=== PATIENT | male | born 1985 | race Caucasian/White ===

== ENCOUNTER 2019-04-17 19:47 | Emergency (ER) | payer OTHER ==
--- NOTE | 2019-04-17 19:52 | PDOC ---
Rapid Medical Evaluation Time Seen by Provider: 04/17/19 19:50 Medical Evaluation: Allergies Allergy/AdvReac Type Severity Reaction Status Date / Time No Known Allergies Allergy Verified 04/17/19 19:50 04/17/19 19:50 I have performed a brief in-person evaluation of this patient. The patient presents with a chief complaint of: RLQ pain x 3 days, no change in BM, n/v/f/c, dysuria, penile dc, testes pain or swelling. Sent from for ED eval. H/o remote surgery for umbilical hernia Pertinent physical exam findings:stable and well pp w/ ttp to RLQ I have ordered the following:labs The patient will proceed to the ED for further evaluation. 04/17/19 19:53 Discharge Disposition - Diagnosis RLQ abdominal pain - Referrals - Patient Instructions - Post Discharge Activity
[2019-04-17 20:05] VITALS: TEMP 98.7; BMI 26.6
[2019-04-17 20:42] LABS: BASO % 0.6 % (0-2.0); EOS % 2.8 % (0-4.5); HEMATOCRIT 45.2 % (35.4-49); HEMOGLOBIN 14.7 GM/dL (11.7-16.9); LYMPH % 31.8 % (8-40); MCH 27.9 pg (25.7-33.7); MCHC 32.6 g/dl (32.0-35.9); MEAN CELL VOLUME 85.7 fl (80-96); MEAN PLT VOLUME 8.1 fl (7.5-11.1); MONO % 9.3 % (3.8-10.2); NEUT % 55.5 % (42.8-82.8); PLATELET COUNT 238 K/MM3 (134-434); RBC 5.27 M/mm3 (4.00-5.60); RDW 13.2 % (11.9-15.9); WHITE BLOOD COUNT 5.3 K/mm3 (4.0-10.0)
[2019-04-17 20:47] LABS: URINE APPEARANCE CLEAR; URINE BILIRUBIN NEGATIVE (NEGATIVE); URINE COLOR YELLOW; URINE GLUCOSE (UA) NEGATIVE (NEGATIVE); URINE KETONE NEGATIVE (NEGATIVE); URINE LEUK ESTERASE NEGATIVE (NEGATIVE); URINE NITRITE NEGATIVE (NEGATIVE); URINE PROTEIN NEGATIVE (NEGATIVE)
[2019-04-17 20:54] LABS: INR 1.02 (0.83-1.09)
[2019-04-17] MEDS ORDERED: ACETAMINOPHEN 1000 MG/100 ML VIAL (NON FORMULARY) IVPB ONE (20:57)
[2019-04-17] MEDS ORDERED: SODIUM CHLORIDE 1,000 ML IV STA (20:57)
--- NOTE | 2019-04-17 21:10 | PDOC ---
History of Present Illness - General Chief Complaint: Pain Stated Complaint: ABD PAIN Time Seen by Provider: 04/17/19 19:50 History Source: Patient Exam Limitations: No Limitations - History of Present Illness Initial Comments: Pt is a 33 yo M, with PMH of ADHD (on adderall), who presents with migrating pain in his abdomen x3 days. Pt states the pain started around his umbilicus, and is sharp, now radiating towards his RLQ. The pain is now associated with nausea, anorexia, and loose stools over the past 2 days. Pt has been tolerating PO food and fluid intake, but has not felt like eating. Pt denies any fevers/ chills, headache, vision changes, syncope, chest pain, palpitations, SOB, vomiting, urinary symptoms, constipation, or leg swelling. Allergies: NKDA PCP: Dr. Lewis ([place]) Social: Pt denies any cigarette, alcohol, or drug use. Pt denies any recent travel or sick contacts. Surgical: small umbilical hernia repair (lap) Family: nephrolithiasis, no appendicitis known 04/17/19 20:57 04/17/19 21:23 Past History - Travel Traveled outside of the country in the last 30 days: No Close contact w/someone who was outside of country & ill: No - Past Medical History Allergies/Adverse Reactions: Allergies Allergy/AdvReac Type Severity Reaction Status Date / Time No Known Allergies Allergy Verified 04/17/19 19:50 Home Medications: Ambulatory Orders Dextroamphetamine/Amphetamine [Adderall Xr 15 mg Capsule] 15 mg PO DAILY COPD: No - Suicide/Smoking/Psychosocial Hx Smoking History: Never smoked Review of Systems - Review of Systems Able to Perform ROS?: Yes Is the patient limited Slovak proficient: No Constitutional: Yes: Loss of Appetite, Malaise, Weight Stable. No: Chills, Diaphoresis, Fever, Weakness HEENTM: No: Recent change in vision, Nose Congestion, Throat Pain, Throat Swelling, Difficulty Swallowing Respiratory: No: Cough, Orthopnea, Shortness of Breath Cardiac (ROS): No: Chest Pain, Edema, Irregular Heart Rate, Lightheadedness, Palpitations, Syncope, Chest Tightness ABD/GI: Yes: See HPI, Diarrhea, Nausea, Poor Appetite, Poor Fluid Intake, Abdominal cramping. No: Constipated, Rectal Bleeding, Vomiting : No: Burning, Dysuria, Frequency, Hematuria, Pain, Urgency, Testicular Pain Musculoskeletal: No: Back Pain, Joint Pain, Muscle Pain, Muscle Weakness Integumentary: No: Rash Neurological: No: Headache, Numbness, Weakness, Unsteady Gait, Dizziness Psychiatric: No: Sleep Pattern Change, Change in Appetite Endocrine: No: Increased Urine, Change in Weight Hematologic/Lymphatic: No: Anemia, Blood Clots, Easy Bleeding, Easy Bruising All Other Systems: Reviewed and Negative *Physical Exam - Vital Signs Last Vital Signs Temp Pulse Resp BP Pulse Ox 98.7 F 64 18 119/69 97 04/17/19 19:51 04/17/19 19:51 04/17/19 19:51 04/17/19 19:51 04/17/19 19:51 - Physical Exam Comments: Vitals stable, pt afebrile. Pt in NAD, normal body habitus. Pt alert and oriented x3. chicken stuffer generally intact, muscular strength and sensation intact. No midline spinal tenderness, step-offs, or crepitus. Head normocephalic, atraumatic. Eyes PERRLA, EOMI. Oropharynx without erythema or exudates, no LAD b/l. No nasal congestion, hearing intact. Clear heart sounds, S1/S2, no JVD, b/l pedal edema, or heart murmur. Clear lung sounds, no respiratory distress, wheezes, crackles, or accessory muscle use. RLQ TTP to palpation, but with no rebound, no guarding. Negative obturator. No CVA TTP. Abdomen soft, non-distended, and with normoactive bowel sounds. Skin without jaundice or rash. 04/17/19 21:27 ED Treatment Course - LABORATORY CBC & Chemistry Diagram: 04/17/19 20:23 04/17/19 20:23 - ADDITIONAL ORDERS Additional order review: Laboratory Results 04/17/19 04/17/19 20:23 20:23 PT with INR 12.00 INR 1.02 Urine Color Yellow Urine Appearance Clear Urine pH 7.0 Ur Specific Letcher 1.024 Urine Protein Negative Urine Glucose (UA) Negative Urine Ketones Negative Urine Blood Negative Urine Nitrite Negative Urine Bilirubin Negative Urine Urobilinogen 1.0 Ur Leukocyte Esterase Negative 04/17/19 20:23 RBC 5.27 MCV 85.7 MCHC 32.6 RDW 13.2 MPV 8.1 Neutrophils % 55.5 Lymphocytes % 31.8 Monocytes % 9.3 Eosinophils % 2.8 Basophils % 0.6 Medical Decision Making - Medical Decision Making Pt was seen at bedside, also will be seen by attending Dr. Torres. Pt presenting with complaints of migrating RLQ abdominal pain, concerning for appendicitis. Will evaluate with labs and CT abd/pelvis with IV contrast pending renal function. Provided 1 L IV NS and 1 g ofirmev for improvement of pain and dehydration. Will continue to reassess pt and monitor for symptomatic improvement. 04/17/19 21:32 Labs all WNL UA negative for infection, renal function ok for contrast. Pending CT abd/pelvis 04/17/19 21:33 [id number] CT/ABDOMEN & PELVIS CT WITH CONTR Abdomen and pelvis CT with contrast Clinical information: right lower quadrant pain, evaluate for appendicitis/ abscess Multiplanar imaging was performed following the intravenous administration of nonionic contrast. Enteric contrast was not administered. No prior imaging studies are available at this facility for direct comparison. No evidence of pneumoperitoneum, abscess, free intraperitoneal fluid or bowel obstruction. The appendix is not definitely visualized however there are no indirect CT signs of acute appendicitis. No gross noncontrast small bowel pathology is seen. The liver appears unremarkable in overall size. Punctate right hepatic lobe low- attenuation focus is seen posteriorly probably representing a cyst or hemangioma. The spleen demonstrates mild prominence measuring 14 cm in length. The splenic vein appears patent. The liver, pancreas, gallbladder, adrenal glands and kidneys demonstrate no discrete abnormality. The aorta appears unremarkable in caliber. No definite lymphadenopathy is seen on the basis of CT size criteria. The visualized osseous structures demonstrate no obvious CT evidence of acute pathology. Impression: No definite CT findings of acute pathology are identified. Minimal to mild splenomegaly. 04/17/19 23:57 Pt can d/c to home with PCP f/u. Pt tolerated PO intake in ED and has been ambulatory. CT with no acute findings, no fever, no increased WBC Strict return precautions provided with pt understanding. 04/17/19 23:57 *DC/Admit/Observation/Transfer Diagnosis at time of Disposition: RLQ abdominal pain - Discharge Dispostion Disposition: HOME Condition at time of disposition: Good Decision to Admit order: No - Referrals Referrals: ON STAFF,NOT [Primary Care Provider] - [facility] [place] [Provider Group] - Patient Instructions Printed Discharge Instructions: DI for Abdominal Pain-Adult Additional Instructions: You were seen in the ER today for pain in your abdomen. The results of your labs and imaging today were normal. Please follow-up with your primary care doctor within 1-2 days to discuss your visit and make sure your symptoms have improved. Please return to the ER if you have any worsening pain, development of fevers or chills, loss of consciousness, inability to tolerate food or fluids , or any other concerns. Ct showed no evidence of appendicitis. You can take tylenol and motrin every 4-6 hours as needed for pain. - Post Discharge Activity
[2019-04-17 21:13] LABS: ALBUMIN 3.7 g/dl (3.4-5.0); BILIRUBIN,TOTAL 0.3 mg/dL (0.2-1); BLOOD UREA NITROGEN 11.6 mg/dL (7-18); CALCIUM 9.5 mg/dL (8.5-10.1); CREATININE 0.9 mg/dL (0.55-1.3); TOT PROT 7.6 g/dl (6.4-8.2)
[2019-04-17] MEDS ORDERED: ACETAMINOPHEN INJECTION 100 ML IVPB ONE (21:35)
--- NOTE | 2019-04-17 21:48 | PDOC ---
Documentation entered by Bouchra Rodriguez SCRIBE, acting as scribe for Rafaela Wu DO. Rafaela Wu DO: This documentation has been prepared by the Jennifer flor Sammi, SCRIBE, under my direction and personally reviewed by me in its entirety. I confirm that the documentation accurately reflects all work, treatment, procedures, and medical decision making performed by me. Attending Attestation - Resident Resident Name: EdenMeron - ED Attending Attestation I have performed the following: I have examined & evaluated the patient, The case was reviewed & discussed with the resident, I agree w/resident's findings & plan, Exceptions are as noted - HPI HPI: 04/17/19 21:02 The patient is a 33 year old male who presents to the emergency department for evaluation of 3 days of periumbilical pain which radiates to the RLQ. The patient reports associated nausea, bloating, and anorexia for 2 days. He was evaluated in urgent care prior and was sent to the ED to rule out appendicitis. Denies penile discharge or new sexual partners. PCP: [facility] - Physicial Exam PE: 04/17/19 21:57 GENERAL: Awake, alert, and fully oriented, in no acute distress NECK: Normal ROM, supple, no lymphadenopathy, JVD, or masses LUNGS: Breath sounds equal, clear to auscultation bilaterally. No wheezes, and no crackles HEART: Regular rate and rhythm, normal S1 and S2, no murmurs, rubs or gallops ABDOMEN: (+)RLQ ttp (+)McBurneys (+)Obturators. Negative Rovsings. Soft, No guarding, no rebound. No masses. No suprapubic tenderness EXTREMITIES: Normal range of motion, no edema. No clubbing or cyanosis. No cords, erythema, or tenderness NEUROLOGICAL: Cranial nerves II through XII grossly intact. Normal speech, normal gait SKIN: Warm, Dry, normal turgor, no rashes or lesions noted. - Medical Decision Making 04/17/19 21:46 I, Dr. Rafaela Wu DO, attest that this document has been prepared under my direction and personally reviewed by me in its entirety. I further attest, that it accurately reflects all work, treatment, procedures and medical decision -making performed by me. 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
[2019-04-17 23:28] VITALS: BP 115/66; PULSE 70
== END 2019-04-18 00:06 | disposition home or self-care (01) ==
LOC: JER 19:47
PROC: 3E033NZ Introduction of Analgesics, Hypnotics, Sedatives into Peripheral Vein, Percutaneous Approach (ICD-10-PCS; principal; 2019-04-17)
PROC: 3E0337Z Introduction of Electrolytic and Water Balance Substance into Peripheral Vein, Percutaneous Approach (ICD-10-PCS; 2019-04-17)
DX: R10.31 Right lower quadrant pain (principal)
CPT/HCPCS: 36415; 74177-TC; 80053; 81003; 83690; 85025; 85610; 86850; 86900; 86901; 99282-25; J0131; J7030